=== PATIENT | female | born 1980 | race Two or more races ===

== ENCOUNTER 2023-10-30 02:33 | Emergency (ER) | payer MEDICAID, OTHER ==
[~2023-10-30] VITALS: Ht 165.1 cm; Wt 93.0 kg
[2023-10-30 03:23] LABS: Urine Amorphous Crystal FEW /hpf (None Seen); Urine Bacteria MANY /hpf (None Seen); Urine Blood TRACE /uL (Negative); Urine Clarity Turbid (Clear); Urine Color Colorless (Yellow); Urine Mucus FEW (None Seen); Urine Protein, UAD Negative (Negative); Urine Specific Gravity 1.033 (1.001-1.035); Urine Urobilinogen Normal (Negative); Urine WBC 20 /hpf (0 - 5)
[2023-10-30 04:16] VITALS: BP 134/57; PULSE 78; RESP 18; TEMP 97.4; O2SAT 97
[2023-10-30 04:35] LABS: Vaginal Bacteria Many; Vaginal Clue Cells Few; Vaginal Epithelial Cells Moderate; Vaginal Trichomonas Not Present
[2023-10-30] MEDS ORDERED: MET500T PO (04:42)
== END 2023-10-30 05:01 | disposition home or self-care (01) ==
LOC: ER 02:33
DX: N76.0 Acute vaginitis (principal); E11.9 Type 2 diabetes mellitus without complications; R82.71 Bacteriuria
CPT/HCPCS: 81001; 87210